=== PATIENT | female | born 1940 | race Caucasian/White ===

== ENCOUNTER 2018-03-22 17:57 | Inpatient (IN) | payer OTHER ==
[~2018-03-22] VITALS: Ht 157.5 cm; Wt 74.8 kg
--- NOTE | 2018-03-22 18:50 | ED GI/GU/ABDOMINAL COMPLAINT ---
History of Present Illness General Chief Complaint: Upper Respiratory Sx/Fever Stated Complaint: BODY ACHES, VOMITING, FEVER Source: patient, family Exam Limitations: no limitations Vital Signs & Intake/Output Vital Signs & Intake/Output Vital Signs Date Time Temp Pulse Resp B/P B/P Pulse O2 O2 Flow FiO2 Mean Ox Delivery Rate 03/22 2028 Room Air 03/22 2021 98.8 101 18 133/55 96 Room Air 03/22 1806 99.5 124 18 130/78 96 Room Air Allergies Coded Allergies: NO KNOWN ALLERGIES (01/28/15) Reconcile Medications Aspirin (Ecotrin*) 81 MG TABLET. 1 TAB PO QPM HEART/BLOOD (Reported) Triage Note: PT TO ER C/C 4 DAY HX OF FEVERS/CHILLS, PRODUCTIVE COUGH AND NAUSEA. CONSTIPATION SINCE SATURDAY. TEMP IN TRIAGE 99.5 Triage Nurses Notes Reviewed? yes ? n Is pt currently ? No HPI: 77F no significant PMH presenting with 4 days of diffuse abdominal pain, nausea, vomiting, dry cough, body aches, and fever. She rarely gets sick and usually sleeps about 5 hours a night, but has been sleeping 10-12 hours for the past 4 days. She has poor appetite and has had a few loose stools. Her abdominal pain is diffuse and non-focal. Past History Travel History Traveled to [place] past 21 day No Medical History Any Pertinent Medical History? see below for history Surgical History Surgical History: non-contributory Psychosocial History What is your primary language Mongolian Tobacco Use: Never used Family History Hx Contributory? No Review of Systems Review of Systems Constitutional: Reports: no symptoms. EENTM: Reports: no symptoms. Respiratory: Reports: no symptoms. Cardiovascular: Reports: no symptoms. GI: Reports: no symptoms. Genitourinary: Reports: no symptoms. Musculoskeletal: Reports: no symptoms. Skin: Reports: no symptoms. Neurological/Psychological: Reports: no symptoms. Hematologic/Endocrine: Reports: no symptoms. Immunologic/Allergic: Reports: no symptoms. All Other Systems: Reviewed and Negative Physical Exam Physical Exam General Appearance: well developed/nourished, mild distress Head: atraumatic, normal appearance Eyes: Bilateral: normal appearance. Ears, Nose, Throat, Mouth: dry mucous membranes Neck: normal inspection, supple, full range of motion Respiratory: normal breath sounds, chest non-tender, no respiratory distress Cardiovascular: regular rate/rhythm Gastrointestinal: tender RLQ with rebound and guarding Back: normal inspection, normal range of motion Extremities: normal range of motion Neurologic/Psych: awake, alert, oriented x 3, normal mood/affect Skin: intact, normal color, warm/dry Core Measures ACS in differential dx? No Sepsis Present: No Sepsis Focused Exam Completed? No Progress Differential Diagnosis: AAA, AMI, appendicitis, biliary colic, bowel obstruction , colon cancer, cholecystitis, diverticulitis, ectopic , endometritis, esophageal varices, gastritis, hepatitis, hernia, hemorrhoids, ischemic bowel, inflamm bowel dis, intrauterine , kidney stone, Rosanna-Bryant tear, ovarian cyst, ovarian torsion, pancreatitis, PID/cervicitis, peptic ulcer, PUD/ GERD, perforated viscous, SBO, threatened AB, UTI/pyelo Plan of Care: Orders Procedure Date/time Status Nothing by Mouth 03/23 B Active CBC WITHOUT DIFFERENTIAL 03/23 600 Active BASIC ELECTROLYTES PLUS BUN&CR 03/23 600 Active Pathway - chart 03/22 2129 Active Admit to inpatient 03/22 2129 Active Code Status 03/22 2129 Active Patient Data 03/22 2125 Active FingerStick- Glucose 03/22 2115 Active BLOOD CULTURE 03/22 1806 Active TROPONIN LEVEL 03/22 180 Complete LACTIC ACID 03/22 180 Complete COMPREHENSIVE METABOLIC PANEL 03/22 180 Complete CBC WITHOUT DIFFERENTIAL 03/22 180 Complete EKG 03/22 180 Active TRC EVALUATION (GEN) 03/22 UNK Active Wound Care/Dressing 03/22 UNK Active VTE Mechanical Prophylaxis 03/22 UNK Active Vital Signs 03/22 UNK Active Drains/Tubes 03/22 UNK Active Intake & Output 03/22 UNK Active Activity/Ambulation 03/22 UNK Active Current Medications Sig/Moris Start time Last Medication Dose Stop Time Status Admin Omeprazole 40 MG DAILY AC 03/23 07 UNVr (Prilosec) Ampicillin Sodium/ 3,000 MG Q6 03/23 0600 UNVr Sulbactam Sodium (Unasyn) Sodium Chloride 100 ML (Normal Saline 0.9%) Heparin Sodium 5,000 UNIT Q8 03/23 0600 UNVr (Porcine) Acetaminophen 650 MG Q6P PRN 03/22 2130 UNVr (Tylenol) Dextrose/Sodium 1,000 ML .Q10H 07/21 2130 UNVr Chloride (D5W-1/2 Normal Saline 1000ML) Morphine Sulfate 4 MG Q2P PRN 03/22 2130 UNVr (Morphine) Ondansetron HCl 4 MG Q6P PRN 03/22 2130 UNVr (Zofran) Oxycodone/ 1 TAB Q4P PRN 03/22 2130 UNVr Acetaminophen (Percocet) Oxycodone/ 2 TAB Q4P PRN 03/22 2130 UNVr Acetaminophen (Percocet) Promethazine HCl 12.5 MG Q6P PRN 03/22 2130 UNVr (Phenergen) 03/29 2129 Sodium Chloride 1,000 ML BOLUS ONE 03/22 2115 AC 03/22 (Normal Saline 0.9%) 03/22 2314 214 Laboratory Tests 03/22/182105: Lactic Acid Cancelled 03/22/181844: Anion Gap 15, Estimated GFR > 60, BUN/Creatinine Ratio 25.0, Glucose 120 H, Lactic Acid 1.0, Calcium 8.7, Total Bilirubin 1.7 H, AST 19, ALT 26, Alkaline Phosphatase 88, Troponin I < 0.01, Total Protein 6.5, Albumin 3.5, Globulin 3.0, Albumin/Globulin Ratio 1.2, CBC w Diff NO MAN DIFF REQ, RBC 4.28, MCV 92.6, MCH 30.8, MCHC 33.3, RDW 14.1, MPV 8.9, Gran % 87.8 H, Lymphocytes % 7.9 L, Monocytes % 4.3, Eosinophils % 0, Basophils % 0, Absolute Granulocytes 17.6 H, Absolute Lymphocytes 1.6, Absolute Monocytes 0.9 H, Absolute Eosinophils 0, Absolute Basophils 0 Microbiology 03/22 1911 BLOOD: Blood Culture - RECD 03/22 1845 BLOOD: Blood Culture - RECD Diagnostic Imaging: Viewed by Me: CT Scan. Discussed w/RAD: CT Scan. Radiology Impression: PATIENT: MANISHA COOPER PRESENT AGE: 77 PATIENT ACCOUNT NO: [id number] : 41 LOCATION: [facility] ORDERING PHYSICIAN: Jennifer Hernandez MD SERVICE DATE: 03/22/18-1848 EXAM TYPE : CAT - CT ABD & PELVIS W IV CONTRAST; CTA CHEST-AORTIC DISSECTION EXAMINATION: CT CHEST, ABDOMEN AND PELVIS with contrast CLINICAL INFORMATION: Shortness of breath, widened mediastinum rule out dissection. COMPARISON: None TECHNIQUE: Multidetector volumetric CT imaging of the chest was obtained Axial MIP volume rendering provided. Sagittal and coronal reformatted images were obtained. CONTRAST: 95 mL Optiray 360 injected. Reformatted coronal and sagittal imaging was performed. DLP: 949 mGy-cm FINDINGS: LOSS CONTROL ENGINEER, LINES TUBES: Alumina Refinery Operator reviewed, no lines. LUNGS: Interstitial: There is a platelike atelectasis at LEFT lung base. Lung nodules: There is 4 mm nodule in the RIGHT upper lobe. There is LEFT apical 1 cm pleural-based density. AIRWAYS: Trachea and bronchi are normal. PLEURA: No pleural effusion or pneumothorax. MEDIASTINUM AND KAYCEE: The visualized thyroid gland is unremarkable. No mediastinal, hilar or axillary lymphadenopathy. There is a moderate-sized sliding hiatal hernia. THORACIC AORTA: There is aneurysmal dilatation of ascending aorta measure up to 4.1 cm in diameter. The descending aorta is normal in size measuring 3.0 x 3 cm. CHEST WALL, LOWER NECK, SURROUNDING SOFT TISSUES: Normal HEART AND PERICARDIUM: Heart is normal in size. There is no pericardial effusion. There are coronary calcifications. HEPATOBILIARY: No focal hepatic lesions. No biliary ductal dilatation. GALLBLADDER: Gallbladder is distended. No surrounding fluid. SPLEEN: Spleen is normal in size. PANCREAS: No focal mass or ductal dilatation. GI TRACT: There is inflammation and fat stranding in the RIGHT lower quadrant surrounding the cecal wall which appear edematous, there are localized free air bubbles adjacent to the cecum and terminal ileum,, the process resemble phlegmon-type inflammation, this is concerning for recently ruptured appendix, appendicitis. At this time there is no evidence of well-defined abscess formation. Mild dilatation of a few of the small bowel loops probably mild ileus. ADRENALS: There is LEFT adrenal mass measures 3 x 2.9 cm, the Hounsfield unit attenuation of which is 66 nonspecific. KIDNEYS/URETERS: No hydronephrosis, stones or solid mass lesions. PELVIC ORGANS/BLADDER: There is a free fluid in the pelvis. PERITONEUM: There are few prominent mesenteric and peritoneal lymph nodes probably reactive. There is a free fluid in the pelvis. LYMPH NODES: No bulky adenopathy. VASCULAR: Abdominal aorta normal in size, no aneurysm found. BONES, ABDOMINAL WALL AND SOFT TISSUES: Age-appropriate changes of the spine and skeletal system, no destructive osteolytic or osteosclerotic bone lesion found IMPRESSION: 1. Inflammation/phlegmon RIGHT lower quadrant surrounding the cecum combined with local free air bubbles and swelling of the cecal wall, this is concerning for ruptured appendicitis. Adjacent free fluid which traced down to the pelvis. 2. Mildly prominent mesenteric lymph nodes might be reactive. 3. Some of the small bowel loops are mildly dilated, probably mild ileus. 4. Left adrenal mass 3 cm. If patient has no prior studies, Consider follow-up dynamically enhanced CT scan or MRI for further assessment. 5. Aneurysmal dilatation of ascending aorta which measure up to 4.1 cm. 6. No suspicious lung mass, there are subcentimeter lung densities largest 4 mm. 7. Sliding hiatal hernia. According to the UPDATED 2017 Fleischner Society recommendations, the advised follow-up imaging for solid nodules < 6 mm is: LOW RISK PATIENT: No routine follow-up. HIGH RISK PATIENT: Optional CT at 12 months. Critical findings called to the referring provider discussed on the phone, the urgency of the findings agreed upon. DICTATED BY: Savi Bennett MD DATE/TIME DICTATED:03/22/182025 INSPECTOR FINAL ASSEMBLY CONVEYOR LINE:UZMA DATE/TIME TRANSCRIBED:03/22/182025 CONFIDENTIAL, DO NOT COPY WITHOUT APPROPRIATE AUTHORIZATION. <Electronically signed in Other Vendor System> SIGNED BY: Savi Bennett MD 03/22/182057 Initial ED EKG: normal sinus rhythm, no ST T wave changes Departure Departure Disposition: STILL A PATIENT Condition: Stable Clinical Impression Primary Impression: Ruptured appendicitis Referrals: Yasmin COOPER,Natalie Crooks (PCP/Family) Departure Forms: Customer Survey General Discharge Information OR/GI Note Spoke With: Ferdinand Cotton MD ED Treatment Decision: MANISHA COOPER requires urgent operative management or an emergent procedure that cannot be performed in the Emergency Room setting. Transport To: [facility]
[2018-03-22 18:59] LABS: ABSOLUTE BASOPHIL COUNT 0 /CUMM (0.0-0.2); ABSOLUTE EOSINOPHIL COUNT 0 /CUMM (0.0-0.7); ABSOLUTE GRANULOCYTE CT 17.6 /CUMM (1.4-6.5); ABSOLUTE LYMPH COUNT 1.6 /CUMM (1.2-3.4); ABSOLUTE MONOCYTE COUNT 0.9 /CUMM (0.10-0.60); BASOPHIL % 0 % (0.0-2.0); EOSINOPHIL % 0 % (0-5); HEMATOCRIT 39.6 % (37-47); MEAN CORPUSCULAR HGB 30.8 PG (27.0-31.0); MEAN CORPUSCULAR HGB CONC 33.3 G/DL (33.0-37.0); MEAN CORPUSCULAR VOLUME 92.6 FL (81.0-99.0); MEAN PLATELET VOLUME 8.9 FL (7.4-10.4); PLATELET COUNT 384 /CUMM (130-400); RBC DISTRIBUTION WIDTH 14.1 % (11.5-14.5); RED BLOOD CELL CT 4.28 /CUMM (4.20-5.40); WHITE BLOOD CELL COUNT 20.1 /CUMM (4.8-10.8)
--- NOTE | 2018-03-22 19:10 | RADIOLOGY REPORT ---
EXAMINATION: XRY-CHEST XRAY, TWO VIEWS CLINICAL INFORMATION: Cough fever COMPARISON: None TECHNIQUE: Frontal and lateral Lungs and Linda: Increased interstitial reticulonodular densities without focal consolidation, platelike atelectasis LEFT lung base. Pleura: Normal. Costophrenic angles are sharp. No pneumothorax. Heart: Heart is enlarged. No failure. Mediastinum: Mediastinum is slightly widened.. Bones: Skeletal structures included are normal for patient's age. IMPRESSION: 1. There is no dense consolidation however there is mild diffuse increased interstitial reticulonodular densities might be sequela of a small airway disease or atypical infection such as mycoplasma or viral. 2. platelike atelectasis at LEFT lung base. 3. Widened mediastinum. If patient has no prior chest x-ray for comparison, consider follow-up CT scan chest with contrast.
[2018-03-22 19:15] LABS: GRANULOCYTE % 87.8 % (42.2-75.2)
[2018-03-22] MEDS ORDERED: ASPIRIN EC81 M1 PO (20:21)
--- NOTE | 2018-03-22 20:58 | CT SCAN REPORT ---
EXAMINATION: CT CHEST, ABDOMEN AND PELVIS with contrast CLINICAL INFORMATION: Shortness of breath, widened mediastinum rule out dissection. COMPARISON: None TECHNIQUE: Multidetector volumetric CT imaging of the chest was obtained Axial MIP volume rendering provided. Sagittal and coronal reformatted images were obtained. CONTRAST: 95 mL Optiray 360 injected. Reformatted coronal and sagittal imaging was performed. DLP: 949 mGy-cm FINDINGS: LAST MARKER, LINES TUBES: Outbound Supervisor reviewed, no lines. LUNGS: Interstitial: There is a platelike atelectasis at LEFT lung base. Lung nodules: There is 4 mm nodule in the RIGHT upper lobe. There is LEFT apical 1 cm pleural-based density. AIRWAYS: Trachea and bronchi are normal. PLEURA: No pleural effusion or pneumothorax. MEDIASTINUM AND KAYCEE: The visualized thyroid gland is unremarkable. No mediastinal, hilar or axillary lymphadenopathy. There is a moderate-sized sliding hiatal hernia. THORACIC AORTA: There is aneurysmal dilatation of ascending aorta measure up to 4.1 cm in diameter. The descending aorta is normal in size measuring 3.0 x 3 cm. CHEST WALL, LOWER NECK, SURROUNDING SOFT TISSUES: Normal HEART AND PERICARDIUM: Heart is normal in size. There is no pericardial effusion. There are coronary calcifications. HEPATOBILIARY: No focal hepatic lesions. No biliary ductal dilatation. GALLBLADDER: Gallbladder is distended. No surrounding fluid. SPLEEN: Spleen is normal in size. PANCREAS: No focal mass or ductal dilatation. GI TRACT: There is inflammation and fat stranding in the RIGHT lower quadrant surrounding the cecal wall which appear edematous, there are localized free air bubbles adjacent to the cecum and terminal ileum,, the process resemble phlegmon-type inflammation, this is concerning for recently ruptured appendix, appendicitis. At this time there is no evidence of well-defined abscess formation. Mild dilatation of a few of the small bowel loops probably mild ileus. ADRENALS: There is LEFT adrenal mass measures 3 x 2.9 cm, the Hounsfield unit attenuation of which is 66 nonspecific. KIDNEYS/URETERS: No hydronephrosis, stones or solid mass lesions. PELVIC ORGANS/BLADDER: There is a free fluid in the pelvis. PERITONEUM: There are few prominent mesenteric and peritoneal lymph nodes probably reactive. There is a free fluid in the pelvis. LYMPH NODES: No bulky adenopathy. VASCULAR:Abdominal aorta normal in size, no aneurysm found. BONES, ABDOMINAL WALL AND SOFT TISSUES: Age-appropriate changes of the spine and skeletal system, no destructive osteolytic or osteosclerotic bone lesion found IMPRESSION: 1. Inflammation/phlegmon RIGHT lower quadrant surrounding the cecum combined with local free air bubbles and swelling of the cecal wall, this is concerning for ruptured appendicitis. Adjacent free fluid which traced down to the pelvis. 2. Mildly prominent mesenteric lymph nodes might be reactive. 3. Some of the small bowel loops are mildly dilated, probably mild ileus. 4. Left adrenal mass 3 cm. If patient has no prior studies, Consider follow-up dynamically enhanced CT scan or MRI for further assessment. 5. Aneurysmal dilatation of ascending aorta which measure up to 4.1 cm. 6. No suspicious lung mass, there are subcentimeter lung densities largest 4 mm. 7. Sliding hiatal hernia. According to the UPDATED 2017 Fleischner Society recommendations, the advised follow-up imaging for solid nodules < 6 mm is: LOW RISK PATIENT: No routine follow-up. HIGH RISK PATIENT: Optional CT at 12 months. Critical findings called to the referring provider discussed on the phone, the urgency of the findings agreed upon.
--- NOTE | 2018-03-22 21:35 | History & Physical Pre-Op ---
Zen Sharp 03/22/182128: General Information and HPI MD Statement: I have seen and personally examined MANISHA COOPER and documented this H&P. The patient is a 77 year old F who presented with a patient stated chief complaint of abdominal pain abdominal pain . Source of Information: patient Exam Limitations: no limitations History of Present Illness: 77-year-old female presented to the ER with worsening abdominal pain nausea and vomiting, fever and chills. Symptoms started approximately 4 days ago in the evening with generalized abdominal pain and malaise, mild tactile fever, decreased appetite. This was Saturday night, she got worse on , started vomiting and Saturday several times, mild per patient, had fever, dry mouth, generalized malaise and weakness, tachycardia without chest pain or shortness of breath. She continued to be anorexic as well. She came to the ER for evaluation this evening and a CT scan was performed which showed a perforated appendicitis. She denies any previous symptoms as such, she denies any previous abdominal surgeries. She states she is healthy, seeing her doctor regularly and only takes a baby aspirin. She has a history of breast cancer which was caught early per patient, had a lumpectomy and did not require chemotherapy or radiation, this was approximately 4-5 years ago. She received IV fluids in the emergency room and IV pain medication and is feeling better. She has peritoneal signs, abdominal pain when she laughs and coughs. She denies any urinary symptoms Allergies/Medications Allergies: Coded Allergies: NO KNOWN ALLERGIES (01/28/15) Home Med list Aspirin (Ecotrin*) 81 MG TABLET. 1 TAB PO QPM HEART/BLOOD (Reported) Past History Medical History Cancer(s): breast cancer Surgical History Pertinent Surgical History: lumpectomy Past Family/Social History Functional Ability ADLs Independent: dressing, eating, toileting, bathing. Review of Systems Review of Systems: Review of systems: See HPI, all other systems negative. Constitutional: See HPI HEENT: No visual changes no sore throat no congestion Cardiovascular: tachycardia Skin: No jaundice no rashes Respiratory: No dyspnea cough sputum or hemoptysis GI: See HPI : No dysuria no hematuria Musclulo skeletal: No back pain no neck pain, Neurologic: No numbness no confusion Psych: No stress anxiety or depression,. Heme/endocrine: No bruising no bleeding no polyuria or polydipsia Immunology: No splenectomy or history of AIDS Exam & Diagnostic Data Last 24 Hrs of Vital Signs/I&O Vital Signs Date Time Temp Pulse Resp B/P B/P Pulse O2 O2 Flow FiO2 Mean Ox Delivery Rate 03/22 2028 Room Air 03/22 2021 98.8 101 18 133/55 96 Room Air 03/22 1806 99.5 124 18 130/78 96 Room Air Physical Exam: Well-developed well-nourished no apparent distress. HEENT: Atraumatic, extraocular motion intact Neck: Supple, no lymphadenopathy Heart: Mild tachycardia, regular rhythm Respiratory: No respiratory distress clear to auscultation bilateral. Abdomen: Softly distended, tenderness throughout the lower abdomen, positive peritoneal signs, significant tenderness right lower quadrant, hypoactive bowel sounds Extremities: No edema, no calf pain Neuro: Alert and oriented x3 Psych: Mood affect normal, normal memory normal judgment. Skin: Warm and dry, no rash on exposed skin Last 24 Hrs of Labs/Eugenio: Laboratory Tests 03/22/182105: Lactic Acid Cancelled 03/22/181844: Anion Gap 15, Estimated GFR > 60, BUN/Creatinine Ratio 25.0, Glucose 120 H, Lactic Acid 1.0, Calcium 8.7, Total Bilirubin 1.7 H, AST 19, ALT 26, Alkaline Phosphatase 88, Troponin I < 0.01, Total Protein 6.5, Albumin 3.5, Globulin 3.0, Albumin/Globulin Ratio 1.2, CBC w Diff NO MAN DIFF REQ, RBC 4.28, MCV 92.6, MCH 30.8, MCHC 33.3, RDW 14.1, MPV 8.9, Gran % 87.8 H, Lymphocytes % 7.9 L, Monocytes % 4.3, Eosinophils % 0, Basophils % 0, Absolute Granulocytes 17.6 H, Absolute Lymphocytes 1.6, Absolute Monocytes 0.9 H, Absolute Eosinophils 0, Absolute Basophils 0 Microbiology 03/22 1911 BLOOD: Blood Culture - RECD 03/22 1845 BLOOD: Blood Culture - RECD Diagnostic Data EKG Results EKG, sinus tachycardia, T inversion in lead III, no other significant ST or T- wave abnormalities, no previous available for comparison Other Results PATIENT: MANISHA COOPER PRESENT AGE: 77 PATIENT ACCOUNT NO: [id number] : 41 LOCATION: [facility] ORDERING PHYSICIAN: Jennifer Hernandez MD SERVICE DATE: 03/22/18 EXAM TYPE: CAT - CT ABD & PELVIS W IV CONTRAST; CTA CHEST-AORTIC DISSECTION EXAMINATION: CT CHEST, ABDOMEN AND PELVIS with contrast CLINICAL INFORMATION: Shortness of breath, widened mediastinum rule out dissection. COMPARISON: None TECHNIQUE: Multidetector volumetric CT imaging of the chest was obtained Axial MIP volume rendering provided. Sagittal and coronal reformatted images were obtained. CONTRAST: 95 mL Optiray 360 injected. Reformatted coronal and sagittal imaging was performed. DLP: 949 mGy-cm FINDINGS: DEPOSITION OPERATOR, LINES TUBES: Airconditioning Drafting Officer reviewed, no lines. LUNGS: Interstitial: There is a platelike atelectasis at LEFT lung base. Lung nodules: There is 4 mm nodule in the RIGHT upper lobe. There is LEFT apical 1 cm pleural-based density. AIRWAYS: Trachea and bronchi are normal. PLEURA: No pleural effusion or pneumothorax. MEDIASTINUM AND KAYCEE: The visualized thyroid gland is unremarkable. No mediastinal, hilar or axillary lymphadenopathy. There is a moderate-sized sliding hiatal hernia. THORACIC AORTA: There is aneurysmal dilatation of ascending aorta measure up to 4.1 cm in diameter. The descending aorta is normal in size measuring 3.0 x 3 cm. CHEST WALL, LOWER NECK, SURROUNDING SOFT TISSUES: Normal HEART AND PERICARDIUM: Heart is normal in size. There is no pericardial effusion. There are coronary calcifications. HEPATOBILIARY: No focal hepatic lesions. No biliary ductal dilatation. GALLBLADDER: Gallbladder is distended. No surrounding fluid. SPLEEN: Spleen is normal in size. PANCREAS: No focal mass or ductal dilatation. GI TRACT: There is inflammation and fat stranding in the RIGHT lower quadrant surrounding the cecal wall which appear edematous, there are localized free air bubbles adjacent to the cecum and terminal ileum,, the process resemble phlegmon-type inflammation, this is concerning for recently ruptured appendix, appendicitis. At this time there is no evidence of well-defined abscess formation. Mild dilatation of a few of the small bowel loops probably mild ileus. ADRENALS: There is LEFT adrenal mass measures 3 x 2.9 cm, the Hounsfield unit attenuation of which is 66 nonspecific. KIDNEYS/URETERS: No hydronephrosis, stones or solid mass lesions. PELVIC ORGANS/BLADDER: There is a free fluid in the pelvis. PERITONEUM: There are few prominent mesenteric and peritoneal lymph nodes probably reactive. There is a free fluid in the pelvis. LYMPH NODES: No bulky adenopathy. VASCULAR:Abdominal aorta normal in size, no aneurysm found. BONES, ABDOMINAL WALL AND SOFT TISSUES: Age-appropriate changes of the spine and skeletal system, no destructive osteolytic or osteosclerotic bone lesion found IMPRESSION: 1. Inflammation/phlegmon RIGHT lower quadrant surrounding the cecum combined with local free air bubbles and swelling of the cecal wall, this is concerning for ruptured appendicitis. Adjacent free fluid which traced down to the pelvis. 2. Mildly prominent mesenteric lymph nodes might be reactive. 3. Some of the small bowel loops are mildly dilated, probably mild ileus. 4. Left adrenal mass 3 cm. If patient has no prior studies, Consider follow-up dynamically enhanced CT scan or MRI for further assessment. 5. Aneurysmal dilatation of ascending aorta which measure up to 4.1 cm. 6. No suspicious lung mass, there are subcentimeter lung densities largest 4 mm. 7. Sliding hiatal hernia. According to the UPDATED 2017 Fleischner Society recommendations, the advised follow-up imaging for solid nodules < 6 mm is: LOW RISK PATIENT: No routine follow-up. HIGH RISK PATIENT: Optional CT at 12 months. Critical findings called to the referring provider discussed on the phone, the urgency of the findings agreed upon. DICTATED BY: Savi Bennett MD DATE/TIME DICTATED:03/22/182025 DOOR TO DOOR SALESPERSON:UZMA DATE/TIME TRANSCRIBED:03/22/182025 Assessment/Plan Assessment/Plan: 77-year-old female with acute appendicitis and perforation, requires laparoscopic appendectomy She will be admitted to the surgical service, under Dr. Cotton We will take her to the operating room tonight, she is getting IV antibiotics in the ER, Rocephin and Flagyl IV. She is being treated with IV fluids, pain medication IV antiemetics. She will be admitted to the hospital for several days for IV antibiotics, monitoring for ileus and signs of worsening infection/ sepsis. Patient understands and agrees with plan. Of note, incidental findings of aortic aneurysm dilatation and adrenal mass will be worked up as outpatient. Patient was notified. As Ranked By This Provider Problem List: 1. Acute appendicitis with perforation and peritoneal abscess Ferdinand Cotton MD 03/22/18 2328: Attending MD Review Statement Attending Statement Attending MD Statement: examined this patient, discuss w/resident/PA/GLASS BEVELER, agreed w/resident/PA/GLASS BEVELER, discussed with family, reviewed images Attending Assessment/Plan: This is a 77-year-old relatively healthy woman presents with 4 days of progressive lower abdominal pain, chills and body aches. Her past medical history is unrevealing. Past surgical history is negative. Meds are aspirin. No drug allergies non-smoker nondrinker. Physical examination reveals a healthy woman of average habitus who looks uncomfortable. She is not dyspneic she is mildly tachycardic. Abdomen is soft and tender in the right lower quadrant with fullness. Mild guarding. No mass no hernia. CT scan images were personally reviewed. Findings show perforated appendicitis, contained. Diagnosis is acute appendicitis with contained perforation/early abscess. By reviewing images, abscess is not amenable to percutaneous drainage. Plan will be to give her IV antibiotics perform prompt laparoscopic appendectomy after fluid resuscitation. She is informed the risk of the operation including bleeding, infection and she agrees to proceed.
--- NOTE | 2018-03-22 21:40 | Patient Discharge Instructions ---
Discharge Instructions General Discharge Information You were seen/treated for: Acute appendicitis You had these procedures: Laparoscopic appendectomy Watch for these problems: Increasing pain Increasing redness, warmth or drainage from incisions Inability to urinate or move bowels Persistent nasuea and vomitting Fever greater than 101.5 Do not soak the wound: Yes Other wound care: Keep wound clean and dry Allow steri strips to fall off on their own, do not remove them yourself Special Instructions: Incidental findings on your CAT scan of aortic aneurysm and an adrenal mass was noted. You will need to follow-up with vascular surgeon Dr. hyde for the aneurysm and Urologist Dr. Herrera for the adrenal mass. Please call for follow-up within the next few weeks Diet Continue normal diet: Yes Recommended Diet: Low Residue Activity Full Activity/No Limits: No Activity Self Limited: Yes Pounds, do NOT lift more than: 10 Acute Coronary Syndrome Inclusion Criteria At DC or during hospital stay patient has or had the following: ACS DIAGNOSIS No Discharge Core Measures Meds if any: Prescribed or Continued at Discharge Meds if any: NOT Prescribed or Continued at Discharge Congestive Heart Failure Inclusion Criteria At DC or during hospital stay patient has or had the following: CHF DIAGNOSIS No Discharge Core Measures Meds if any: Prescribed or Continued at Discharge Meds if any: NOT Prescribed or Continued at Discharge Cerebrovascular accident Inclusion Criteria At DC or during hospital stay patient has or had the following: CVA/TIA Diagnosis No Discharge Core Measures Meds if any: Prescribed or Continued at Discharge Meds if any: NOT Prescribed or Continued at Discharge Venous thromboembolism Inclusion Criteria VTE Diagnosis No VTE Type NONE VTE Confirmed by (Test) NONE Discharge Core Measures - Per Current guidelines, there needs to be overlap - treatment for the first 5 days of Warfarin therapy. - If discharged on Warfarin prior to 5 days of - overlap therapy, the patient will need to be - assessed for post discharge needs including - *Post discharge parental anticoagulation - *Warfarin and/or parental anticoagulation education - *Follow up date to check INR post discharge At least 5 days overlap therapy as Inpatient No Meds if any: Prescribed or Continued at Discharge Note: Overlap Therapy is Warfarin and Anticoagulant Meds if any: NOT Prescribed or Continued at Discharge
--- NOTE | 2018-03-22 23:34 | Operative Report ---
Operative/Inv Procedure Report Surgery Date: 03/22/18 Name of Procedure: Laparoscopic appendectomy with drainage of peritoneal abscess Pre-Operative Diagnosis: Perforated appendicitis Post-Operative Diagnosis: Appendicitis with abscess Estimated Blood Loss: less than 50ml Surgeon/Building And Grounds Supervisor: Yury COOPER,Ferdinand Ruelas/Zen PÉREZ Anesthesia: general endotracheal tube Drains: 15 Urdu Issa-Torrez Specimens: Appendix Microbiology: Abscess fluid Operative/Procedure Note Note: After consent patient is brought to the operating room and laid supine. General anesthesia was obtained his abdomen was prepped and draped. Skin above the umbilicus was after local anesthesia a curvilinear incision made sharply. We dissected through subcutaneous tissues tissues bluntly and identified the fascia. It was grasped with [place]'s and a fasciotomy created sharply. The peritoneum was entered sharply and a blunt Gordon port was placed. Pneumoperitoneum was achieved. 2, 5 mm ports were placed in the suprapubic region and left lower quadrant, after local anesthesia was instilled and under direct vision the camera. Patient placed in Trendelenburg and rotated towards the left. The abdomen was explored. The appendix was not visible. There was terminal ileum plastered over the right pelvic sidewall. There was bilious discolored ascitic fluid in the pelvis. With great difficulty I was able to peel the terminal ileum off the pelvic sidewall. We thus exposed an abscess in the purulence was evacuated. Specimen sent for culture. There are multiple fecaliths in the abscess cavity. There were suctioned up. With blunt dissection I was able to free up the appendix from the terminal ileum and pelvic sidewall. This allowed the appendix to be brought up into the wound. It was somewhat hemorrhagic from diffuse oozing over raw surfaces. Grasped the appendix at its base which was somewhat necrotic. A window in the mesentery was developed with a [place] dissector. The mesentery was divided with Endo VERONICA cyr load. The base was quite thickened and I attempted to squeeze a small amount of cecum into the stapler. We then divided the base with a reload of the stapler. Appendix was placed in Endo Catch bag and cinched up. The right lower quadrant pelvis and right upper quadrant within serially suction irrigated with normal saline. Hemostasis was adequate. I placed a 15 Urdu round Issa- Torrez drain through the suprapubic port site up into the cynthia-with abscess cavity and once been. Ports then removed and appendix delivered and passed off the field. The fascia was closed 0 Vicryl suture. Drain was sutured to the skin with 2-0 nylon suture. Skin incisions closed with 4-0 Vicryl. Steri- Strips and sterile dressing applied. Sponge and needle counts are correct CC: Yasmin COOPER,Natalie Crooks
--- NOTE | 2018-03-22 23:47 | Admission Core Measures ---
Acute Coronary Syndrome (CM) ACS Core Measures Acute Coronary Syndrome Diagnosis No Congestive Heart Failure (NEW) CHF Core Measures Congestive Heart Failure Diagnosis No Cerebrovascular Accident CVA Core Measures CVA/TIA Diagnosis No Venous Thromboembolism VTE Core Dhara (View Protocol) VTE Risk Factors Age>40 No Mechanical VTE Prophylaxis d/t N/A MechProphylax Ordered No VTE Pharm Prophylaxis d/t NA PharmProphylax ordered Problem List As ranked by this Provider includes Assessment & Plan 1. Acute appendicitis with perforation and peritoneal abscess HOME MEDS Home Med List Aspirin (Ecotrin*) 81 MG TABLET.DR 1 TAB PO QPM HEART/BLOOD (Reported)
--- NOTE | 2018-03-23 00:19 | PN- General Surgery ---
Subjective Subjective: Postop check: Patient recovering well, temperature of 101, no other complaints. Objective Vital Signs and I&Os Vital Signs Date Time Temp Pulse Resp B/P B/P Pulse O2 O2 Flow FiO2 Mean Ox Delivery Rate 03/22 2028 Room Air 03/22 2021 98.8 101 18 133/55 96 Room Air 03/22 180 99.5 124 18 130/78 96 Room Air Intake & Output 03/23 0803/23 0000 03/22 1600 03/22 0803/22 0000 03/21 1600 Intake Total Output Total Balance Patient 165 lb Weight Weight Reported by Patient Measurement Method Physical Exam: Well-developed well-nourished no apparent distress. HEENT: Atraumatic, extraocular motion intact Neck: Supple, no lymphadenopathy Respiratory: No respiratory distress Abdomen: CUONG drain in place, holding self suction, moderate amount of thin serosanguineous drainage noted in the bulb syringe. No significant abdominal tenderness Extremities: No edema, no calf pain Neuro: Alert and oriented x3 Psych: Mood affect normal, normal memory normal judgment. Skin: Warm and dry, no rash on exposed skin Assessment/Plan Assessment/Plan Postop day #0 status post laparoscopic appendectomy secondary to perforated appendicitis N.p.o. for now. IV fluids. A.m. labs. Heparin subcu for DVT prophylaxis. GI prophylaxis. Rocephin and Flagyl IV Ambulate. Incentive spirometer. ALPS I's and O's Monitor CUONG drain output Core Measures Venous Thromboembolism VTE Risk Factors Age>40 No Mechanical VTE Prophylaxis d/t N/A MechProphylax Ordered No VTE Pharm Prophylaxis d/t NA PharmProphylax ordered
[2018-03-23 02:02] VITALS: BP 120/58
[2018-03-23 04:05] VITALS: BP 114/56
[2018-03-23 06:08] VITALS: BP 118/60
--- NOTE | 2018-03-23 09:11 | PN- General Surgery ---
Savanah Olivarez 03/23/18 0905: Subjective Subjective: Patient is alert sitting upright in bed without complaints. Her symptoms are much improved this morning. No fevers no nausea or vomiting. Drain with 440 output overnight. She feels generalized abdominal pain with soreness but controlled. She feels movement of her bowels but no flatus or BM yet Objective Vital Signs and I&Os Vital Signs Date Time Temp Pulse Resp B/P B/P Pulse O2 O2 Flow FiO2 Mean Ox Delivery Rate 03/23 0608 97.7 77 18 118/60 90 Room Air 03/23 0405 97.6 58 18 114/56 91 Nasal 2.0L Cannula 03/23 0202 97.6 77 16 120/58 95 Nasal 1.0L Cannula 03/23 0054 101.3 03/22 2028 Room Air 03/22 2021 98.8 101 18 133/55 96 Room Air 03/22 1806 99.5 124 18 130/78 96 Room Air Intake & Output 03/23 1600 03/23 0800 03/23 0000 03/22 1600 03/22 0800 03/22 0000 Intake Total 450 Output Total 440 Balance 10 Intake, IV 450 Number 0 Bowel Movements Output, 440 Drainage Patient 165 lb Weight Weight Reported by Patient Measurement Method Physical Exam: Patient is alert and oriented sitting upright in bed Vital signs are stable she had a 101 temp last night but no fevers this morning Chest clear to auscultation symmetric without rales rhonchi or wheeze Heart is regular rate rhythm without murmurs rubs gallops Abdomen is rounded with mild distention generalized abdominal soreness positive bowel sounds Issa-Torrez drain with 440 mL of serosanguineous output overnight Bilateral lower extremities are soft with good perfusion Current Medications: Current Medications Sig/Moris Start time Last Medication Dose Route Stop Time Status Admin Acetaminophen 650 MG .STK-MED ONE 03/23 0052 DC PO 03/23 0053 Acetaminophen 650 MG Q6P PRN 03/22 2130 AC 03/23 PO 0054 Ampicillin Sodium/ 3,000 MG Q6 03/23 06 CAN Sulbactam Sodium IV Sodium Chloride 100 ML Aspirin 81 MG DAILY 03/23 900 AC PO Ceftriaxone Sodium 1,000 MG DAILY 03/23 900 AC IV Ceftriaxone Sodium 0 .STK-MED ONE 03/22 2110 DC .ROUTE Ceftriaxone Sodium 1,000 MG ONCE ONE 03/22 2100 DC 03/22 IV 03/22 2101 2126 Dextrose/Sodium 1,000 ML .Q10H 03/22 2130 AC Chloride IV Fentanyl Citrate 200 MCG .STK-MED ONE 03/22 2218 DC IM 03/22 2219 Heparin Sodium 5,000 UNIT Q8 03/23 0600 AC 03/23 (Porcine) SC 0529 Metronidazole 500 MG IQ8 03/23 0030 AC 03/23 N/A 1 UNIT IV 0823 Metronidazole 500 MG ONCE ONE 03/22 2100 DC 03/22 N/A 1 UNIT IV 03/22 215 214 Midazolam HCl 2 MG .STK-MED ONE 03/22 2219 DC IM 03/22 2220 Morphine Sulfate 4 MG Q2P PRN 03/22 2130 AC IV Omeprazole 40 MG DAILY AC 03/23 07 AC 03/23 PO 0528 Ondansetron HCl 4 MG Q6P PRN 03/22 2130 AC IV Ondansetron HCl 0 .STK-MED ONE 03/22 2110 DC .ROUTE Ondansetron HCl 4 MG ONCE ONE 03/22 2045 DC 03/22 IV 03/22 204 212 Oxycodone/ 1 TAB Q4P PRN 03/22 2130 AC Acetaminophen PO Oxycodone/ 2 TAB Q4P PRN 03/22 2130 AC Acetaminophen PO Promethazine HCl 12.5 MG Q6P PRN 03/22 2130 AC IV 03/29 2129 Sodium Chloride 1,000 ML BOLUS ONE 03/22 2115 DC 03/22 IV 03/22 2314 2145 Sodium Chloride 1,000 ML BOLUS ONE 03/22 1900 DC 03/22 IV 03/22 2059 1922 Results Last 48 Hours of Labs: Laboratory Tests 03/23 03/22 03/22 0830 2106 1845 Chemistry Sodium (137 - 145 mmol/L) Pending 136 L Potassium (3.5 - 5.1 mmol/L) Pending 3.8 Chloride (98 - 107 mmol/L) Pending 99 Carbon Dioxide (22 - 30 mmol/L) Pending 23 Anion Gap (5 - 16) Pending 15 BUN (7 - 17 mg/dL) Pending 20 H Creatinine (0.5 - 1.0 mg/dL) Pending 0.8 Estimated GFR (>60 ml/min) > 60 BUN/Creatinine Ratio (7 - 25 %) Pending 25.0 Glucose (65 - 99 mg/dL) 120 H Lactic Acid (0.7 - 2.1 mmol/L) Cancelled 1.0 Calcium (8.4 - 10.2 mg/dL) 8.7 Total Bilirubin (0.2 - 1.3 mg/dL) 1.7 H AST (14 - 36 U/L) 19 ALT (9 - 52 U/L) 26 Alkaline Phosphatase (<127 U/L) 88 Troponin I (< 0.11 ng/ml) < 0.01 Total Protein (6.3 - 8.2 g/dL) 6.5 Albumin (3.5 - 5.0 g/dL) 3.5 Globulin (1.9 - 4.2 gm/dL) 3.0 Albumin/Globulin Ratio (1.1 - 2.2 %) 1.2 Hematology CBC w Diff Pending NO MAN DIFF REQ WBC (4.8 - 10.8 /CUMM) Pending 20.1 H RBC (4.20 - 5.40 /CUMM) Pending 4.28 Hgb (12.0 - 16.0 G/DL) Pending 13.2 Hct (37 - 47 %) Pending 39.6 MCV (81.0 - 99.0 FL) Pending 92.6 MCH (27.0 - 31.0 PG) Pending 30.8 MCHC (33.0 - 37.0 G/DL) Pending 33.3 RDW (11.5 - 14.5 %) Pending 14.1 Plt Count (130 - 400 /CUMM) Pending 384 MPV (7.4 - 10.4 FL) Pending 8.9 Gran % (42.2 - 75.2 %) 87.8 H Lymphocytes % (20.5 - 51.1 %) 7.9 L Monocytes % (1.7 - 9.3 %) 4.3 Eosinophils % (0 - 5 %) 0 Basophils % (0.0 - 2.0 %) 0 Absolute Granulocytes (1.4 - 6.5 /CUMM) 17.6 H Absolute Lymphocytes (1.2 - 3.4 /CUMM) 1.6 Absolute Monocytes (0.10 - 0.60 /CUMM) 0.9 H Absolute Eosinophils (0.0 - 0.7 /CUMM) 0 Absolute Basophils (0.0 - 0.2 /CUMM) 0 Assessment/Plan Assessment/Plan POD 1 status post laparoscopic appendectomy secondary to perforated appendicitis Currently on Rocephin and Flagyl IV Encourage out of bed and ambulation Alps and heparin subcutaneous for DVT prophylaxis We will try clears for dinner if she continues to progress well today Issa-Torrez to stay in place and we will continue to monitor its output A.m. labs are pending Core Measures Venous Thromboembolism VTE Risk Factors Age>40 No Mechanical VTE Prophylaxis d/t N/A MechProphylax Ordered No VTE Pharm Prophylaxis d/t NA PharmProphylax ordered Ferdinand Cotton MD 03/23/18 1159: Attending MD Review Statement Attending Statement Attending Assessment/Plan: AGREE WITH ABOVE PLAN OF CARE
[2018-03-23 09:37] LABS: ABSOLUTE BASOPHIL COUNT 0 /CUMM (0.0-0.2); ABSOLUTE EOSINOPHIL COUNT 0 /CUMM (0.0-0.7); ABSOLUTE GRANULOCYTE CT 14.5 /CUMM (1.4-6.5); ABSOLUTE LYMPH COUNT 0.8 /CUMM (1.2-3.4); ABSOLUTE MONOCYTE COUNT 0.4 /CUMM (0.10-0.60); BASOPHIL % 0 % (0.0-2.0); EOSINOPHIL % 0 % (0-5); GRANULOCYTE % 92.5 % (42.2-75.2); MEAN CORPUSCULAR HGB 31.1 PG (27.0-31.0); MEAN CORPUSCULAR HGB CONC 33.2 G/DL (33.0-37.0); MEAN CORPUSCULAR VOLUME 93.7 FL (81.0-99.0); PLATELET COUNT 326 /CUMM (130-400); RBC DISTRIBUTION WIDTH 14.3 % (11.5-14.5); RED BLOOD CELL CT 3.69 /CUMM (4.20-5.40); WHITE BLOOD CELL COUNT 15.7 /CUMM (4.8-10.8)
[2018-03-23 10:41] LABS: HEMATOCRIT 34.5 % (37-47)
[2018-03-23 14:13] VITALS: BP 120/70
[2018-03-23 21:21] VITALS: BP 114/64
[2018-03-24 06:17] VITALS: BP 134/86
--- NOTE | 2018-03-24 08:44 | PN- General Surgery ---
See Addendum Subjective Subjective: FEELING OK, NICK CLEARS, PAIN CONTROLLED, SOME OOB. NO N/V/CP/SOB. AFEBRILE Objective Vital Signs and I&Os Vital Signs Date Time Temp Pulse Resp B/P B/P Pulse O2 O2 Flow FiO2 Mean Ox Delivery Rate 03/24 06 98.1 78 20 134/86 95 Room Air 03/24 0027 97.7 03/23 2121 98.2 75 20 114/64 93 03/23 1413 86 21 120/70 94 03/23 1150 Room Air Intake & Output 03/24 1600 03/24 0800 03/24 0000 03/23 1600 03/23 0800 03/23 0000 Intake Total 1090 1200 300 450 Output Total 820 540 50 440 Balance 270 660 250 10 Intake, IV 850 800 300 450 Intake, Oral 240 400 Number 0 Bowel Movements Output, 170 40 50 440 Drainage Output, Urine 650 500 Patient 165 lb 165 lb Weight Weight Reported by Patient Reported by Patient Measurement Method Physical Exam: GEN- NAD CARD- S1S2 RRR PULM- CTAB ABD- SOFT, TTP AT INCISIONS, STERISTRIPS IN PLACE, LUIGI W SEROUS IN BULB, DRESSING AT DRAIN SITE SATURATED WITH SEROUS FLUID, EXT- CALVES SOFT NT, ALPS ON Current Medications: Current Medications Sig/Moris Start time Last Medication Dose Route Stop Time Status Admin Acetaminophen 650 MG Q6P PRN 03/22 2130 AC 03/23 PO 0054 Aspirin 81 MG DAILY 03/23 09 AC 03/23 PO 1013 Ceftriaxone Sodium 1,000 MG DAILY 03/23 09 AC 03/23 IV 1013 Dextrose/Sodium 1,000 ML .Q10H 03/22 2130 AC 03/24 Chloride IV 0544 Heparin Sodium 5,000 UNIT Q8 03/23 06 AC 03/24 (Porcine) SC 0544 Metronidazole 500 MG IQ8 03/23 0030 AC 03/24 N/A 1 UNIT IV 0021 Morphine Sulfate 2 MG Q2P PRN 03/24 0815 AC IV Morphine Sulfate 4 MG Q2P PRN 03/22 2130 DC IV Omeprazole 40 MG DAILY AC 03/23 07 AC 03/24 PO 0544 Ondansetron HCl 4 MG Q6P PRN 03/22 2130 AC IV Oxycodone/ 1 TAB Q4P PRN 03/22 2130 AC Acetaminophen PO Oxycodone/ 2 TAB Q4P PRN 03/22 2130 AC Acetaminophen PO Promethazine HCl 12.5 MG Q6P PRN 03/22 2130 AC IV 03/29 2129 Results Last 48 Hours of Labs: Laboratory Tests 03/24 03/23 03/22 0725 0830 2106 Chemistry Sodium (137 - 145 mmol/L) Pending 143 Potassium (3.5 - 5.1 mmol/L) Pending 3.9 Chloride (98 - 107 mmol/L) Pending 107 Carbon Dioxide (22 - 30 mmol/L) Pending 22 Anion Gap (5 - 16) Pending 14 BUN (7 - 17 mg/dL) Pending 12 Creatinine (0.5 - 1.0 mg/dL) Pending 0.6 Estimated GFR (>60 ml/min) > 60 BUN/Creatinine Ratio (7 - 25 %) Pending 20.0 Lactic Acid Cancelled Hematology CBC w Diff Pending MAN DIFF ORDERED WBC (4.8 - 10.8 /CUMM) Pending 15.7 H RBC (4.20 - 5.40 /CUMM) Pending 3.69 L Hgb (12.0 - 16.0 G/DL) Pending 11.5 L Hct (37 - 47 %) Pending 34.5 L MCV (81.0 - 99.0 FL) Pending 93.7 MCH (27.0 - 31.0 PG) Pending 31.1 H MCHC (33.0 - 37.0 G/DL) Pending 33.2 RDW (11.5 - 14.5 %) Pending 14.3 Plt Count (130 - 400 /CUMM) Pending 326 MPV (7.4 - 10.4 FL) Pending 10.0 Gran % (42.2 - 75.2 %) 92.5 H Lymphocytes % (20.5 - 51.1 %) 5.1 L Monocytes % (1.7 - 9.3 %) 2.4 Eosinophils % (0 - 5 %) 0 Basophils % (0.0 - 2.0 %) 0 Absolute Granulocytes (1.4 - 6.5 /CUMM) 14.5 H Segmented Neutrophils (42.2 - 75.2 %) 83 H Band Neutrophils (0.0 - 5.0 %) 9 H Absolute Lymphocytes (1.2 - 3.4 /CUMM) 0.8 L Lymphocytes (20.5 - 51.1 %) 5 L Monocytes (1.7 - 9.3 %) 3 Absolute Monocytes (0.10 - 0.60 /CUMM) 0.4 Absolute Eosinophils (0.0 - 0.7 /CUMM) 0 Absolute Basophils (0.0 - 0.2 /CUMM) 0 Normocytic RBCs VERIFIED Normochromic RBCs VERIFIED 03/22 1845 Chemistry Sodium (137 - 145 mmol/L) 136 L Potassium (3.5 - 5.1 mmol/L) 3.8 Chloride (98 - 107 mmol/L) 99 Carbon Dioxide (22 - 30 mmol/L) 23 Anion Gap (5 - 16) 15 BUN (7 - 17 mg/dL) 20 H Creatinine (0.5 - 1.0 mg/dL) 0.8 Estimated GFR (>60 ml/min) > 60 BUN/Creatinine Ratio (7 - 25 %) 25.0 Glucose (65 - 99 mg/dL) 120 H Lactic Acid (0.7 - 2.1 mmol/L) 1.0 Calcium (8.4 - 10.2 mg/dL) 8.7 Total Bilirubin (0.2 - 1.3 mg/dL) 1.7 H AST (14 - 36 U/L) 19 ALT (9 - 52 U/L) 26 Alkaline Phosphatase (<127 U/L) 88 Troponin I (< 0.11 ng/ml) < 0.01 Total Protein (6.3 - 8.2 g/dL) 6.5 Albumin (3.5 - 5.0 g/dL) 3.5 Globulin (1.9 - 4.2 gm/dL) 3.0 Albumin/Globulin Ratio (1.1 - 2.2 %) 1.2 Hematology CBC w Diff NO MAN DIFF REQ WBC (4.8 - 10.8 /CUMM) 20.1 H RBC (4.20 - 5.40 /CUMM) 4.28 Hgb (12.0 - 16.0 G/DL) 13.2 Hct (37 - 47 %) 39.6 MCV (81.0 - 99.0 FL) 92.6 MCH (27.0 - 31.0 PG) 30.8 MCHC (33.0 - 37.0 G/DL) 33.3 RDW (11.5 - 14.5 %) 14.1 Plt Count (130 - 400 /CUMM) 384 MPV (7.4 - 10.4 FL) 8.9 Gran % (42.2 - 75.2 %) 87.8 H Lymphocytes % (20.5 - 51.1 %) 7.9 L Monocytes % (1.7 - 9.3 %) 4.3 Eosinophils % (0 - 5 %) 0 Basophils % (0.0 - 2.0 %) 0 Absolute Granulocytes (1.4 - 6.5 /CUMM) 17.6 H Absolute Lymphocytes (1.2 - 3.4 /CUMM) 1.6 Absolute Monocytes (0.10 - 0.60 /CUMM) 0.9 H Absolute Eosinophils (0.0 - 0.7 /CUMM) 0 Absolute Basophils (0.0 - 0.2 /CUMM) 0 Assessment/Plan Assessment/Plan A- 77F POD2 sp lap appy for perf'ed appendicitis, improving, with serous drainge from drain site. P- full liquids cont luigi to self suction hl i&os oob, ambulate prn pain meds cont iv abx for active infection dvt ppx will dw attending Core Measures Venous Thromboembolism VTE Risk Factors Age>40 No Mechanical VTE Prophylaxis d/t N/A MechProphylax Ordered No VTE Pharm Prophylaxis d/t NA PharmProphylax ordered
[2018-03-24 09:06] LABS: ABSOLUTE BASOPHIL COUNT 0 /CUMM (0.0-0.2); ABSOLUTE EOSINOPHIL COUNT 0 /CUMM (0.0-0.7); ABSOLUTE GRANULOCYTE CT 12.5 /CUMM (1.4-6.5); ABSOLUTE LYMPH COUNT 1.7 /CUMM (1.2-3.4); ABSOLUTE MONOCYTE COUNT 0.5 /CUMM (0.10-0.60); BASOPHIL % 0.2 % (0.0-2.0); EOSINOPHIL % 0 % (0-5); GRANULOCYTE % 84.9 % (42.2-75.2); HEMATOCRIT 33.3 % (37-47); MEAN CORPUSCULAR HGB CONC 33.5 G/DL (33.0-37.0); MEAN CORPUSCULAR VOLUME 92.7 FL (81.0-99.0); MEAN PLATELET VOLUME 10.2 FL (7.4-10.4); PLATELET COUNT 347 /CUMM (130-400); RBC DISTRIBUTION WIDTH 14.8 % (11.5-14.5); RED BLOOD CELL CT 3.59 /CUMM (4.20-5.40); WHITE BLOOD CELL COUNT 14.7 /CUMM (4.8-10.8)
[2018-03-24 14:17] VITALS: BP 140/70
[2018-03-24 22:04] VITALS: BP 146/58
[2018-03-25 06:20] VITALS: BP 120/68
--- NOTE | 2018-03-25 09:17 | PN- General Surgery ---
See Addendum Subjective Subjective: Patient reportedly slept well overnight and is noting improvement in abdominal discomfort today. Specifically denies nausea and vomitting. Has been passing flatus, no recent bm within last 24 hours. Has been voiding well. Denies chest pain, shortness of breath and difficulty breahting. Objective Vital Signs and I&Os Vital Signs Date Time Temp Pulse Resp B/P B/P Pulse O2 O2 Flow FiO2 Mean Ox Delivery Rate 03/25 0620 99.0 73 18 120/68 95 Room Air 03/24 2204 98.4 78 18 146/58 96 Room Air 03/24 1417 97.6 74 20 140/70 97 Intake & Output 03/25 1600 03/25 0800 03/25 0000 03/24 1600 03/24 0800 03/24 0000 Intake Total 955 191 5254 1090 1200 Output Total 10 190 10 820 540 Balance 278 048 6947 270 660 Intake, IV 10 100 300 850 800 Intake, Oral 120 240 880 240 400 Number 2 Bowel Movements Output, 10 190 10 170 40 Drainage Output, Urine 650 500 Patient 165 lb Weight Weight Reported by Patient Measurement Method Physical Exam: General: Alert and oriented x3, no acute distress Cardiac: RRR, s1s2 Pulm: C T A bilaterally, non-labored respiratory effort Abd: Soft, no peritonitic signs, drainage around luigi site minimal, luigi holding suction with serous output. Extremiteis; Moves all extremities, distal sensation intact. Skin warm and well perfused. Bialteral calves soft and non-tender Assessment/Plan Assessment/Plan This is a 77 year old female, POD 3 s/p lap appy for perf. Incidental findings on admission: aortic aneurysm, adrenal mass. Cultures showing gram neg rods, gram pos cocci and strep a. Has been on rocephin/flagyl. Awaiting sensititivities -Continue to advance diet as toelrated -OOB, IST encouraged -Continue rocephin/flagyl -Await sensititivites -Anticipate dc to home today, will dc drain upon discharge Will discuss poc with Dr. Cotton Core Measures Venous Thromboembolism VTE Risk Factors Age>40 No Mechanical VTE Prophylaxis d/t N/A MechProphylax Ordered No VTE Pharm Prophylaxis d/t NA PharmProphylax ordered
[2018-03-25 09:23] LABS: ABSOLUTE BASOPHIL COUNT 0 /CUMM (0.0-0.2); ABSOLUTE EOSINOPHIL COUNT 0.1 /CUMM (0.0-0.7); ABSOLUTE LYMPH COUNT 2.5 /CUMM (1.2-3.4); ABSOLUTE MONOCYTE COUNT 0.4 /CUMM (0.10-0.60); BASOPHIL % 0.2 % (0.0-2.0); EOSINOPHIL % 0.8 % (0-5); GRANULOCYTE % 76.8 % (42.2-75.2); HEMATOCRIT 36.5 % (37-47); MEAN CORPUSCULAR HGB 31.2 PG (27.0-31.0); MEAN CORPUSCULAR HGB CONC 33.6 G/DL (33.0-37.0); MEAN CORPUSCULAR VOLUME 92.9 FL (81.0-99.0); PLATELET COUNT 434 /CUMM (130-400); RBC DISTRIBUTION WIDTH 14.9 % (11.5-14.5); RED BLOOD CELL CT 3.93 /CUMM (4.20-5.40)
[2018-03-25 14:02] VITALS: BP 122/60
[2018-03-25] MEDS ORDERED: FLAGYL500 MG PO (15:40)
[2018-03-25] MEDS ORDERED: PERCOCET 5-3251 EACH PO (15:40)
[2018-03-25] MEDS ORDERED: KEFLEX500 M1 PO (15:40)
== END 2018-03-25 16:50 | DRG 340 ==
LOC: ERH 17:57 → ERHI 21:29 → 2NA 21:29 → CRI 03-23 00:51 → 2NA 03-23 01:35 → ENPENDDIS 03-25 16:14 → ENTRNSPT 03-25 16:18 → EDTRNSPT 03-25 16:37 → EDTRNSPTSTS 03-25 16:37 → CMPTRNSPT 03-25 16:49 → 2NA 03-25 16:50
PROVIDERS: Nurse Practitioner; Physician Assistant; Physician Assistant Surgical
PROC: 0DTJ4ZZ Resection of Appendix, Percutaneous Endoscopic Approach (ICD-10-PCS; principal; 2018-03-22)
PROC: 0W9G40Z Drainage of Peritoneal Cavity with Drainage Device, Percutaneous Endoscopic Approach (ICD-10-PCS; 2018-03-22)
DX: K35.3 Acute appendicitis with localized peritonitis (principal); Z85.3 Personal history of malignant neoplasm of breast; Z79.82 Long term (current) use of aspirin
CPT/HCPCS: 2NAP; 2NASP; 87070; 87075; ERO; 36415; 36592; 71046; 74177; 82436; 87040; 87071; 93005; 93010; J0696; J1644; J2405; J3490